=== PATIENT | male | born 1935 | race Caucasian/White ===

== ENCOUNTER 2017-03-21 21:45 | Emergency (ER) | payer MEDICARE ==
[2017-03-21 21:54] VITALS: BP 116/47; PULSE 51; RESP 18; TEMP 98.5
[2017-03-21] MEDS ORDERED: FAMOTIDINE 20 MG TAB PO STA (22:26)
[2017-03-21] MEDS ORDERED: predniSONE 20 MG TAB PO STA (22:27)
--- NOTE | 2017-03-21 22:33 | ED ---
Skin/Abscess/FB HPI - General Chief complaint: Extremity Injury, Upper Stated complaint: insect bite rt hand Time Seen by Provider: 03/21/17 22:00 Source: patient Mode of arrival: ambulatory Limitations: no limitations - History of Present Illness Initial comments: Patient is an 81-year-old white male presenting to the emergency department with complaints of Hornet sting to his right hand. Onset of bee sting yesterday afternoon. Patient states he was trying to remove a hornet's nets when he was stung. Patient states that his hand has progressively gotten more swollen. No history of nausea, vomiting, shortness of breath, wheezing, tongue or throat itching, or abdominal pain. Patient states he applied ice this site with minimal relief. Patient states he is up-to-date on tetanus immunization. MD complaint: insect bite/sting Onset/Timin -: days(s) Tetanus Up to Date: yes Location: R hand Severity: moderate Severity scale (1-10): 5 Quality: aching Improves with: cold therapy Context: witnessed insect bite (Hornet sting) Associated symptoms: denies other symptoms Treatments Prior to Arrival: other (ice) - Related Data Home Medications Medication Instructions Recorded Confirmed Atenolol [Tenormin] 25 mg PO DAILY 03/21/17 03/21/17 Atorvastatin [Lipitor] 20 mg PO DAILY 03/21/17 03/21/17 Donepezil [Aricept] 10 mg PO DAILY 03/21/17 03/21/17 Furosemide [Lasix] 40 mg PO DAILY 03/21/17 03/21/17 Gabapentin [Neurontin] 300 mg PO TID 03/21/17 03/21/17 Levothyroxine Sodium [Synthroid] 100 mcg PO DAILY 03/21/17 03/21/17 Lisinopril 40 mg PO DAILY 03/21/17 03/21/17 Multivitamins, Thera [Multivitamin 1 tab PO DAILY 03/21/17 03/21/17 (formulary)] Omeprazole [PriLOSEC] 20 mg PO DAILY 03/21/17 03/21/17 Potassium Chloride [Klor-Con 10] 10 meq PO DAILY 03/21/17 03/21/17 Unknown Insulin 1 dose SQ DAILY 03/21/17 03/21/17 Vits A,C,E/Lutein/Minerals 1 tab PO DAILY 03/21/17 03/21/17 [Ocuvite with Lutein Tablet] Previous Rx's Medication Instructions Recorded Famotidine [Pepcid] 20 mg PO BID #6 tablet 03/21/17 predniSONE 20 mg PO DAILY #2 tab 03/21/17 Allergies Allergy/AdvReac Type Severity Reaction Status Date / Time No Known Allergies Allergy Verified 03/21/17 22:04 Review of Systems ROS Statement: Those systems with pertinent positive or pertinent negative responses have been documented in the HPI. ROS Other: All systems not noted in ROS Statement are negative. Past Medical History Past Medical History: Heart Failure, Diabetes Mellitus, GERD/Reflux, Hyperlipidemia, Hypertension, Thyroid Disorder History of Any Multi-Drug Resistant Organisms: None Reported Additional Past Surgical History / Comment(s): BOWEL OBSTRUCITON Past Psychological History: No Psychological Hx Reported Smoking Status: Never smoker Past Alcohol Use History: None Reported Past Drug Use History: None Reported General Exam - General Exam Comments Initial Comments: GENERAL: Pt awake and alert, well-appearing, well-nourished, and in no acute distress. HEAD: Atraumatic, normocephalic. EYES: Pupils equal, round, and reactive to light, extraocular movements intact, sclera anicteric, conjunctiva are normal. ENT: Oropharynx clear without exudates. Moist mucous membranes. Tongue smooth, pink, no lesions, protrudes in midline. NECK:Normal range of motion, supple without lymphadenopathy. LUNGS: Breath sounds clear to auscultation bilaterally. No wheezes, rales, or rhonchi. HEART: Heart S1, S2, no S3 or S4. Regular rate and rhythm. No murmurs, rubs or gallops. ABDOMEN: Soft, nontender, nondistended, normoactive bowel sounds. No guarding, no rebound. No masses or organomegaly appreciated. MUSCULOSKELETAL: Normal ROM, no tenderness. Strength 5/5. EXTREMITIES: 2+ peripheral pulses. 1+ pitting edema to right hand. Full range of motion. NEUROLOGICAL: Pt oriented x 3. PSYCH: Normal mood, normal affect. SKIN: Warm, dry. No rashes or lesions. Limitations: no limitations Course Vital Signs 03/21/17 21:50 Temperature 98.5 F Pulse Rate 51 L Respiratory 18 Rate Blood Pressure 116/47 O2 Sat by Pulse 100 Oximetry Medical Decision Making - Medical Decision Making Bee sting with localized ALLERGIC reaction without evidence of cellulitis. Disposition Clinical Impression: Bee sting reaction Disposition: HOME SELF-CARE Condition: Good Instructions: Insect Bite or Sting (ED) Additional Instructions: Continue Pepcid 20 mg twice daily for 3 days. Continue prednisone 20 mg daily for 3 days. Continue ice to hand. Elevate hand to reduce swelling. Please follow-up with primary care physician as directed. Please return to the emergency department with any new or worsening symptoms. Prescriptions: Famotidine [Pepcid] 20 mg PO BID #6 tablet predniSONE 20 mg PO DAILY #2 tab Referrals: Jonathan Kim MD [Primary Care Provider] - 1-2 days Time of Disposition: 22:32
== END 2017-03-21 22:38 | disposition home or self-care (01) ==
LOC: EC 21:45
DX: T63.441A Toxic effect of venom of bees, accidental (unintentional), initial encounter (principal); I50.9 Heart failure, unspecified; E11.9 Type 2 diabetes mellitus without complications; K21.9 Gastro-esophageal reflux disease without esophagitis; E78.5 Hyperlipidemia, unspecified; I10 Essential (primary) hypertension; E07.9 Disorder of thyroid, unspecified; Z79.899 Other long term (current) drug therapy; Z79.4 Long term (current) use of insulin
CPT/HCPCS: 99283; J7512

== ENCOUNTER 2017-09-25 07:53 | Day surgery (SDC) | payer MEDICARE ==
[2017-09-18 12:32] VITALS: BMI 20.7
[~2017-09-25 07:53] MED LIST: LACTATED RINGERS 1,000 ML IV SCH; ONDANSETRON 4 MG/2 ML VIAL IVP PRN
[2017-09-25] MEDS ORDERED: DEXTROSE 50%-WATER 50 ML SYRINGE IVP ONE (08:35)
[2017-09-25 08:44] LABS: Glucose,Whole Blood 65 mg/dL (75-99)
[2017-09-25] MEDS ORDERED: PROPOFOL 10 MG/ML 20 ML VIAL IV ONE (08:51)
[2017-09-25] MEDS ORDERED: LIDOCAINE 1% INJ 10MG/ML (20 ML MDV) ONE (08:51)
[2017-09-25 08:54] LABS: Glucose,Whole Blood 125 mg/dL (75-99)
--- NOTE | 2017-09-25 09:01 | P.GSHP ---
History of Present Illness H&P Date: 09/25/17 Chief Complaint: GERD, rectal bleeding, anemia Patient is known to our service. The patient history of anemia. Hemoglobin 11. Some rectal bleeding as well. Mild reflux at times. No constipation or diarrhea. No abdominal pain. 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 History of Any Multi-Drug Resistant Organisms: None Reported Past Surgical History: Appendectomy Additional Past Surgical History / Comment(s): SURGERY FOR BOWEL OBSTRUCITON ( 2007)., THYROIDECTOMY, MULTIPLE SKIN GRAFTS FOR VALENZUELA (14 YRS OLD) Past Anesthesia/Blood Transfusion Reactions: No Reported Reaction Past Psychological History: No Psychological Hx Reported Additional Psychological History / Comment(s): ANXIOUS ABOUT PROCEDURES AND BOWEL PREP. Smoking Status: Former smoker Past Alcohol Use History: None Reported Additional Past Alcohol Use History / Comment(s): QUIT SMOKING 1977. SMOKED 1 PPD OR MORE. STARTED SMOKING AGE 21.- SMOKED 22 YEARS. Past Drug Use History: None Reported - Past Family History Sister(s) Family Medical History: Cancer Additional Family Medical History / Comment(s): BREAST CANCER Medications and Allergies Home Medications Medication Instructions Recorded Confirmed Type Atenolol [Tenormin] 25 mg PO DAILY 03/21/17 09/25/17 History Atorvastatin [Lipitor] 20 mg PO DAILY 03/21/17 09/25/17 History Levothyroxine Sodium [Synthroid] 100 mcg PO DAILY 03/21/17 09/25/17 History Omeprazole [PriLOSEC] 20 mg PO DAILY 03/21/17 09/25/17 History Potassium Chloride [Klor-Con 10] 10 meq PO DAILY 03/21/17 09/25/17 History Aspirin [Adult Low Dose Aspirin EC] 81 mg PO DAILY 09/18/17 09/25/17 History Ibuprofen [Advil] 400 mg PO DAILY PRN 09/18/17 09/25/17 History Insulin Aspart (For Pump) [NovoLOG 0 unit SQ-PUMP CONTINUOUS 09/18/17 09/25/17 History (For Pump)] Lisinopril [Zestril] 10 mg PO DAILY 09/18/17 09/25/17 History Triamterene/Hydrochlorothiazid 1 each PO DAILY 09/18/17 09/25/17 History [Triamterene-Hctz 37.5-25 mg Tb] Allergies Allergy/AdvReac Type Severity Reaction Status Date / Time No Known Allergies Allergy Verified 09/25/17 08:56 Surgical - Exam Vital Signs Pulse Resp BP 51 L 16 139/63 09/25/17 08:45 09/25/17 08:45 09/25/17 08:45 Physical exam: General: Well-developed, well-nourished HEENT: Normocephalic, sclerae nonicteric Abdomen: Nontender, nondistended Extremities: No edema Neuro: Alert and oriented Results - Labs Abnormal Lab Results - Last 24 Hours (Table) 09/25/17 09/25/17 Range/Units 08:29 08:44 POC Glucose (mg/dL) 65 L 125 H (75-99) mg/dL Assessment and Plan (1) Rectal bleeding Narrative/Plan: Will proceed with upper and lower endoscopy at this time Current Visit: Yes Status: Acute Code(s): K62.5 - HEMORRHAGE OF ANUS AND RECTUM SNOMED Code(s): 63628275
--- NOTE | 2017-09-25 09:30 | P.PCN ---
Date of Procedure: 09/25/17 Procedure(s) Performed: PREOPERATIVE DIAGNOSIS: GERD, rectal bleeding, anemia POSTOPERATIVE DIAGNOSIS: Gastritis, diverticulosis PROCEDURE: Colonoscopy , EGD with biopsy ANESTHESIA: MAC SURGEON: Fede Sandy M.D. SPECIMENS: Antrum Endoscopic Procedure: The patient was on the endoscopy table in the left decubitus position. The Olympus gastroscope was inserted into the oropharynx and passed under direct visualization to the region of the third portion of the duodenum. From that point the scope was slowly withdrawn inspecting all surfaces carefully. There were no neoplastic inflammatory or polypoid lesions throughout the duodenum. The pylorus was widely patent. The stomach was carefully inspected. There was mild gastritis present. A biopsy of the antrum took place to rule out H. pylori. Retroflexion revealed a normal hiatus. The esophagus was then carefully examined. There were no neoplastic inflammatory or polypoid lesions throughout the visualized esophagus. The patient was then taken to the recovery room in stable condition per anesthesia guidelines. The patient was placed on the endoscopy table in the left decubitus position. The Olympus colonoscope was inserted into the anus and passed under direct visualization to the base of the cecum. The appendiceal orifice was visualized. From that point the scope was slowly withdrawn inspecting all surfaces carefully. There were no neoplastic inflammatory or polypoid lesions throughout the cecum, ascending, transverse, descending, sigmoid and rectum. There was mild diverticulosis noted sigmoid colon. The patient's prep was somewhat suboptimal with a large volume of liquid stool seen scattered throughout the colon. Despite that I was able to irrigate and visualize the majority of the mucosal surfaces. Digital rectal examination was normal. The patient was taken to the recovery room in stable condition per anesthesia guidelines. RECOMMENDATIONS: Await biopsy results. Increase fiber. Continue anemia workup.
[2017-09-25 09:56] LABS: Glucose,Whole Blood 86 mg/dL (75-99)
[2017-09-25 10:11] VITALS: BP 168/77; PULSE 49; RESP 16
== END 2017-09-25 10:21 ==
LOC: ORWHC2ENDO 07:53
PROVIDERS: ATTEND Surgery
DX: K29.50 Unspecified chronic gastritis without bleeding (principal); K57.90 Diverticulosis of intestine, part unspecified, without perforation or abscess without bleeding; D64.9 Anemia, unspecified; K21.9 Gastro-esophageal reflux disease without esophagitis; I11.0 Hypertensive heart disease with heart failure; Z87.891 Personal history of nicotine dependence; E11.9 Type 2 diabetes mellitus without complications; Z79.4 Long term (current) use of insulin; Z96.41 Presence of insulin pump (external) (internal); E07.9 Disorder of thyroid, unspecified; E78.5 Hyperlipidemia, unspecified; M19.042 Primary osteoarthritis, left hand; M19.041 Primary osteoarthritis, right hand; Z85.850 Personal history of malignant neoplasm of thyroid; Z85.828 Personal history of other malignant neoplasm of skin; Z79.82 Long term (current) use of aspirin; Z79.899 Other long term (current) drug therapy
CPT/HCPCS: 88305; 88342; 45378; 43239; J2001; J2704